=== PATIENT | male | born 1955 | race Caucasian/White ===

== ENCOUNTER 2020-07-28 17:15 | Emergency (ER) | payer SELFPAY ==
[~2020-07-28] VITALS: Ht 162.6 cm; Wt 55.8 kg
[2020-07-28 17:22] VITALS: Ht 162.6 cm; Wt 55.8 kg
[2020-07-28 18:59] VITALS: BP 149/81
== END 2020-07-28 18:59 | disposition home or self-care (01) ==
LOC: ED 17:15
DX: U07.1 COVID-19 (principal); J06.9 Acute upper respiratory infection, unspecified
CPT/HCPCS: U0003-CS